=== PATIENT | male | born 1955 | race Caucasian/White ===

== ENCOUNTER 2018-08-16 06:01 | Day surgery (SDC) | payer MEDICARE, OTHER ==
[~2018-08-16] VITALS: Ht 182.9 cm; Wt 99.8 kg
[~2018-08-16 06:01] MED LIST: AF-MIGRAIN1 PO; ASPIRIN REGIMEN81 MG PO; CENTRUM SILVER PO; CEPHALEXIN500 MG OR; COQ10200 MG PO; FISH OIL500 MG PO; GENTAMICIN15 ML/BTL OP; LIPITOR20 MG PO; LIPITOR40 MG OR; LIPITOR80 M1 PO; PREVACID30 M1 PO; PRILOSEC20 MG/CAP OR; PROPRANOLOL HCL40 MG PO; SIMVASTATIN10 MG; SINGULAIR PO; ULTRAM50 M1 PO; VITAMIN D1000 UNIT PO
[2018-08-16] MEDS ORDERED: ADVIL MIGRAI200 M1 PO (06:32)
[2018-08-16 07:36] VITALS: BP 109/57
== END 2018-08-16 08:06 | disposition home or self-care (01) ==
LOC: ENDO 06:01 → ORM 08:00 → ENDO 08:06
PROVIDERS: ATTEND Surgery
PROC: 0DJD8ZZ Inspection of Lower Intestinal Tract, Via Natural or Artificial Opening Endoscopic (ICD-10-PCS; principal; 2018-08-16)
PROC: 0DB78ZX Excision of Stomach, Pylorus, Via Natural or Artificial Opening Endoscopic, Diagnostic (ICD-10-PCS; 2018-08-16)
DX: Z12.11 Encounter for screening for malignant neoplasm of colon (principal); K57.30 Diverticulosis of large intestine without perforation or abscess without bleeding; K21.9 Gastro-esophageal reflux disease without esophagitis; K44.9 Diaphragmatic hernia without obstruction or gangrene; K29.60 Other gastritis without bleeding; I25.10 Atherosclerotic heart disease of native coronary artery without angina pectoris; Z79.899 Other long term (current) drug therapy
CPT/HCPCS: 43239; G0121

== ENCOUNTER 2022-06-22 07:43 | Emergency (ER) | payer MEDICARE, OTHER ==
[~2022-06-22] VITALS: Ht 182.9 cm; Wt 95.0 kg
[~2022-06-22 07:43] MED LIST changes: +ADVIL MIGRAI200 M1 PO
[2022-06-22 07:51] VITALS: BP 144/91
[2022-06-22 08:00] VITALS: BP 150/79
[2022-06-22 08:15] VITALS: BP 127/92
[2022-06-22 13:03] VITALS: BP 127/92
== END 2022-06-22 13:10 | disposition home or self-care (01) ==
LOC: ED 07:43
DX: U07.1 COVID-19 (principal); R51.9 Headache, unspecified; R53.83 Other fatigue; E78.00 Pure hypercholesterolemia, unspecified